=== PATIENT | female | born 1995 | race Caucasian/White ===

== ENCOUNTER 2017-01-29 11:42 | Emergency (ER) | payer BC ==
[2017-01-29 12:14] VITALS: BP 114/71
--- NOTE | 2017-01-29 14:03 | UC ---
FLU HPI - HPI Summary HPI Summary: Pt c/o sore throat, cough, constipation, nasal congestion. X3 days. Pt has known exposure to mono. Pt has past history of mono.Pt did not get flu vaccine - History of Current Complaint Chief Complaint: UCRespiratory Stated Complaint: FEVER,CHILLS,ST COUGH Time Seen by Provider: 01/29/17 13:09 Hx Obtained From: Patient Hx Last Menstrual Period: iud ?: No Onset/Duration: Gradual Onset Severity Currently: Mild Severity Initially: Mild Associated Signs & Symptoms: Positive: Fever, Myalgia, Cough, Sore Throat - Allergy/Home Medications Allergies/Adverse Reactions: Allergies Allergy/AdvReac Type Severity Reaction Status Date / Time No Known Allergies Allergy Verified 07/20/15 21:45 PMH/Surg Hx/FS Hx/Imm Hx - Additional Past Medical History Additional PMH: mono Previously Healthy: Yes Endocrine History Of: Denies: Diabetes, Thyroid Disease Cardiovascular History Of: Denies: Cardiac Disorders, Hypertension Respiratory History Of: Denies: COPD, Asthma GI/ History Of: Denies: Ulcer - Surgical History Surgical History: Yes Surgery Procedure, Year, and Place: DENTAL SURGERIES: WISDOM TEETH AND BONE GRAPHS DONE - Family History Known Family History: Positive: Cardiac Disease - Social History Occupation: Student Alcohol Use: Weekly Substance Use Type: None Smoking Status (MU): Never Smoked Tobacco Review of Systems Constitutional: Fever, Chills, Fatigue Skin: Negative Eyes: Negative ENT: Sore Throat Respiratory: Cough Cardiovascular: Negative Gastrointestinal: Negative Genitourinary: Negative Motor: Negative Neurovascular: Negative Musculoskeletal: Negative Neurological: Negative Psychological: Negative All Other Systems Reviewed And Are Negative: Yes Physical Exam Triage Information Reviewed: Yes Appearance: Well-Appearing Vital Signs: Initial Vital Signs Temp 100.5 F 01/29/17 12:10 Pulse 90 01/29/17 12:10 Resp 18 01/29/17 12:10 BP 114/71 01/29/17 12:10 Pulse Ox 99 01/29/17 12:10 Eye Exam: Normal ENT Exam: Other ENT: Positive: Pharyngeal erythema, Nasal congestion, Tonsillar swelling Neck exam: Normal Respiratory Exam: Normal Cardiovascular Exam: Normal Musculoskeletal Exam: Normal Neurological Exam: Normal Psychological Exam: Normal Skin Exam: Normal Flu Course/Dx - Differential Dx/Diagnosis Differential Diagnosis/HQI/PQRI: Bronchitis, Influenza, Upper Respiratory Infection Provider Diagnoses: Viral syndrome Discharge - Discharge Plan Condition: Stable Disposition: HOME Patient Education Materials: Viral Syndrome (ED) Forms: *School Release Referrals: [facility] [Outside] No Primary Care Phys,NOPCP [Primary Care Provider] - Additional Instructions: Please follow up with your pCP or return to clinic as needed.
== END 2017-01-29 13:58 | disposition home or self-care (01) ==
LOC: UCEAST 11:42
DX: B34.9 Viral infection, unspecified (principal)
CPT/HCPCS: 87502; 87651; 99211; G0463

== ENCOUNTER 2018-08-06 20:18 | Emergency (ER) | payer BC ==
[2018-08-06 20:43] VITALS: BP 150/95
--- NOTE | 2018-08-06 21:46 | UC ---
General HPI - HPI Summary HPI Summary: A 23 y/o female presents to [facility] c/o generalized sickness reaching 2/10 in severity. According to the patient, yesterday (08/05/2018) she was not feeling well. She stated that she has a sore throat and felt swelling under tongue. She decided to put off the symptoms as it was the weekend and she thought it was subside after some time, however, today it is not so much the sore throat that is bothering her, but rather she noticed that her glands underneath her tongue are swollen. Additionally, she felt a fever in class, but she took her temperature when she got home and was afebrile. Pt took 400mg Motrin. She denies any nausea, vomiting, rash, ear pain, sinus pain, but does feel a post nasal drip. She noted that she can eat, but it feels uncomfortable to the point where she feels something is not right. Pt's voice is a little scratchy. Pt sttaes she was yelling all weekend. Pt states she was swimming in a pool with high chlorine content. No vomiting this weekend. No vaping. No known allergies. No regular medications. She took Advil at 1700. No prior surgeries. SHx of ETOH on the weekends, no cigarettes or recreational drugs. She denies any new foods or new substances, denies prior bite to tongue. Patient lives in house. Pt's medications reviewed this visit. - History of Current Complaint Chief Complaint: UCRespiratory Stated Complaint: MOUTH AND THROAT COMPLAINT Time Seen by Provider: 08/06/18 21:34 Hx Obtained From: Patient Hx Last Menstrual Period: MIRENA IUD Onset/Duration: Sudden Onset, Lasting Days, Still Present Onset Severity: Mild Current Severity: Mild Pain Intensity: 2 Associated Signs & Symptoms: Positive: Fever - SUBJECTIVE. Negative: Nausea, Vomiting - Allergy/Home Medications Allergies/Adverse Reactions: Allergies Allergy/AdvReac Type Severity Reaction Status Date / Time No Known Allergies Allergy Verified 08/06/18 20:43 Home Medications: Home Medications Ibuprofen TAB* [Advil TAB*] 400 mg PO ONCE PRN 08/06/18 [History Confirmed 08/06] PMH/Surg Hx/FS Hx/Imm Hx Previously Healthy: Yes - Surgical History Surgical History: Yes Surgery Procedure, Year, and Place: DENTAL SURGERIES: WISDOM TEETH AND BONE GRAPHS DONE - Family History Known Family History: Positive: Cardiac Disease - Social History Occupation: Student Lives: Dormitory/Roommates Alcohol Use: Occasionally Substance Use Type: None Smoking Status (MU): Never Smoked Tobacco Review of Systems Constitutional: Fever - SUBJECTIVE, Other - Generalized sickness Skin: Negative Eyes: Negative ENT: Sore Throat, Other - Swollen glands under tongue Respiratory: Negative Cardiovascular: Negative Gastrointestinal: Negative Genitourinary: Negative Motor: Negative Neurovascular: Negative Musculoskeletal: Negative Neurological: Negative Psychological: Negative Is Patient Immunocompromised?: No All Other Systems Reviewed And Are Negative: Yes Physical Exam - Summary Physical Exam Summary: Vital Signs Reviewed: Yes A+Ox3, no distress, no airway concern. voice harsh Eyes: Conjunctiva Clear, YULIANA. EOM intact and full ENT: Hearing grossly normal TM x 2 clear, mmoist, uvula midline, no exudate, no erythema. Pt noted to have fullness of b/l sublingual salivary gland. mild tenderness. no stones, expressed normal appearing saliva. no purlunence mild discomfort with palpation. no apparent tongue edema. no trimus full mouth opening Neck: Positive: Supple, no cervical lymphadenopathy Respiratory: Positive: No respiratory distress, No accessory muscle use + CTA throughout no w/r Cardiovascular: RRR nl s1, s2 no m/r CBT <2 sec abd soft + BS nt/nd no guarding, no distension Musculoskeletal Exam: WEST x 4 without difficulty Strength Intact, ROM Intact Neurological: Positive: Alert, + sensation throughout Psychological: Positive: Normal Response To Family Skin: Positive: no rash, no ecchymosis Triage Information Reviewed: Yes Vital Signs: Initial Vital Signs Temp 97.8 F 08/06/18 20:39 Pulse 97 08/06/18 20:39 Resp 16 08/06/18 20:39 BP 150/95 08/06/18 20:39 Pulse Ox 100 08/06/18 20:39 Vital Signs Reviewed: Yes Course/Dx - Course Course Of Treatment: Blood pressure noted and patient informed to follow up with PCP. Pt presents with mild sore throat - mostly resolved and fullness under tongue. No airway compromise - speaking full, easy sentences, handling secretions. Strep neg. will give Rx prednisone. chlorhexadine rinse. motrin/ apap. [facility] f.u. strict return precautions discussed. pt comfortable and in agreement with plan - Differential Dx - Multi-Symptom Provider Diagnoses: silandenitis Discharge - Sign-Out/Discharge Documenting (check all that apply): Patient Departure - DISCHARGE All imaging exams completed and their final reports reviewed: No Studies - Discharge Plan Condition: Stable Disposition: HOME Prescriptions: Chlorhexidine MOUTHWASH 0.12%* [Peridex Mouth Wash 0.12%*] 15 ml SWISH SPIT TID #150 oral.soln predniSONE TAB* [Deltasone 20 MG TAB*] 40 mg PO DAILY #8 tab Patient Education Materials: Sialoadenitis (ED) Referrals: No Primary Care Phys,NOPCP [Primary Care Provider] - Additional Instructions: - Take prednisone once daily as prescribed until gone - swish and spit with prescription mouthwash 3 times a day as prescribed - Okay to take Tylenol (acetaminophen) or Ibuprofen (Advil Motrin) every 3 horus as needed for pain or fever - contact the [facility] tomorrow to schedule a recheck tomorrow or wed If you develop difficulty swallowing or you notice ANY difficulty with your breathing - call 911 or go immediately to the emergency department - Billing Disposition and Condition Condition: STABLE Disposition: Home - Attestation Statements Document Initiated by Netteibe: Yes Documenting Scribe: Simone Rivero Provider For Whom Preeti is Documenting (Include Credential): Honey Romero MD Scribe Attestation: Simone Spring, scribed for Honey Romero MD on 08/08/18 at 1015. Scribe Documentation Reviewed: Yes Provider Attestation: The documentation as recorded by the Simone eli accurately reflects the service I personally performed and the decisions made by me, Honey Romero MD
[2018-08-06] MEDS ORDERED: predniSONE TAB* 20 MG PO ONE (21:47)
== END 2018-08-06 22:08 | disposition home or self-care (01) ==
LOC: UCEAST 20:18
DX: K11.20 Sialoadenitis, unspecified (principal)
CPT/HCPCS: 87651; 99212; G0463; J7512